=== PATIENT | female | born 1980 | race Caucasian/White ===

== ENCOUNTER 2018-11-17 17:12 | Emergency (ER) | payer MEDICAID ==
[~2018-11-17] VITALS: Ht 177.8 cm; Wt 73.6 kg
[2018-11-17 17:15] VITALS: Ht 177.8 cm; Wt 73.6 kg
[2018-11-17] MEDS ORDERED: ULTRAM50 MG PO (17:16)
[2018-11-17] MEDS ORDERED: KLONOPIN1 MG PO (17:16)
[2018-11-17] MEDS ORDERED: ESTRADERM 0.10.1 MG (17:17)
[2018-11-17] MEDS ORDERED: GABAPENTIN100 MG (17:17)
[2018-11-17] MEDS ORDERED: TOPAMAX50 MG (17:17)
[2018-11-17 18:05] LABS: HEMATOCRIT 46.9 % (36.0-48.0); HEMOGLOBIN 15.9 g/dL (12-16); MCHC 33.9 g/dL (31.0-37.0); MCV 100.4 fL (80.0-100.0); MEAN PLATELET VOLUME 9.5 fL (7.4-10.4); PLATELET COUNT 304 10x3/uL (130-400); RBC 4.67 10x6/uL (4.00-5.40); RDW 12.6 % (11.5-14.5); WBC 21.3 10x3/uL (4.8-10.8)
[2018-11-17 18:09] LABS: ALBUMIN 3.8 g/dL (3.4-5.0); ALKALINE PHOSPHATASE 57 U/L (46-116); ALT (SGPT) 36 U/L (10-68); BILIRUBIN - TOTAL 0.33 mg/dL (0.2-1.3); CALC OSMOLALITY 285 mosm/kg (275-300); CALCIUM 8.8 mg/dL (8.5-10.1); CARBON DIOXIDE 26.3 mmol/L (21.0-32.0); CHLORIDE - SERUM 104 mmol/L (98-107); CREATININE - SERUM 0.9 mg/dL (0.6-1.3); GLUCOSE 133 mg/dL (74-106); PROTEIN - SERUM 7.7 g/dL (6.4-8.2); SODIUM 141 mmol/L (136-145); UREA NITROGEN 21 mg/dL (7-18); eGFR NON AFRICAN AMERICAN 74 mL/min (90-120)
[2018-11-17 18:12] LABS: AMYLASE - SERUM 60 U/L (25-115); LIPASE 135 U/L (73-393); TROPONIN-I < 0.017 ng/mL (0.000-0.060)
[2018-11-17 18:46] LABS: EOSINOPHILS 1 % (0-7); LYMPHOCYTES 3 % (15-50); MONOCYTES 1 % (2-11); NEUTROPHILS 92 % (40-80); PLATELET ESTIMATE NORMAL
[2018-11-17 20:21] LABS: APPEARANCE CLEAR (CLEAR); COLOR YELLOW (YELLOW)
[2018-11-17 20:22] LABS: BILIRUBIN NEGATIVE (NEGATIVE); GLUCOSE NEGATIVE (NEGATIVE); KETONE NEGATIVE (NEGATIVE); NITRITE NEGATIVE (NEGATIVE); PROTEIN NEGATIVE (NEGATIVE); SPECIFIC GRAVITY 1.015 (1.005-1.020); UROBILINOGEN NORMAL (NORMAL)
[2018-11-17] MEDS ORDERED: ZOFRAN4 MG PO (21:10)
[2018-11-17] MEDS ORDERED: CARAFATE1 G PO (21:10)
[2018-11-17] MEDS ORDERED: PROTONIX40 MG PO (21:10)
[2018-11-17 21:40] VITALS: BP 121/85
== END 2018-11-17 21:40 | disposition home or self-care (01) ==
LOC: D.ER 17:12
PROVIDERS: Emergency Medicine
DX: R10.9 Unspecified abdominal pain (principal); K29.70 Gastritis, unspecified, without bleeding; R11.10 Vomiting, unspecified; M32.9 Systemic lupus erythematosus, unspecified; F17.200 Nicotine dependence, unspecified, uncomplicated; R06.2 Wheezing; R00.0 Tachycardia, unspecified; I44.60 Unspecified fascicular block